=== PATIENT | female | born 1970 | race Caucasian/White ===

== ENCOUNTER → 2017-01-29 | Day surgery (SDC) | payer MEDICAID ==
[~2017-01-29] VITALS: Ht 152.4 cm; Wt 82.6 kg
[~2017-01-29] MED LIST: CEFAZOLIN SODIUM 1000MG/VIAL ONE; CYAN100086 PO; FENTANYL CITRATE/PF 50MCG/ML 2ML VIAL ONE; FERRIC SUBSULFATE SOLN 8GM TOP SCH; FISH1CAP34 PO; HYDROCODONE/ACETAMINOPHEN 5/325MG TABLET PO PRN; IODINE TOP SCH; LACTATED RINGERS 1,000 ML IV SCH; LIDOCAINE HCL 1% 20ML VIAL (Pyxis) INJ ONE; MEPERIDINE HCL/PF 25MG/ML CPJ IV PRN; MIDAZOLAM HCL 2 MG/2 ML VIAL ONE; MULT-1146 PO; ONDANSETRON HCL 4MG/2ML VIAL IV PRN; ONDANSETRON HCL 4MG/2ML VIAL ONE; POTASSIUM IODIDE TOP SCH; PROPOFOL 200MG/20ML VIAL IV ONE; SODIUM CHLORIDE 0.9% 1,000 ML IV SCH; VITA400T7 PO
[2017-01-29 06:36] LABS: BASOPHILS % 1.4 % (0.0-2.0); DIFFERENTIAL COMMENT 0; EOSINOPHILS % 5.2 % (0.0-5.0); HEMATOCRIT. 39.3 % (36.0-48.0); LYMPHOCYTES % 26.9 % (20.0-50.0); MEAN CORPUSCULAR HEMOGLOBIN 26.5 pg (28.0-32.0); MEAN CORPUSCULAR HGB CONC 33.2 g/dL (31.0-37.0); MEAN CORPUSCULAR VOLUME 79.8 fL (81.0-99.0); MONOCYTES % 10.5 % (2.0-8.0); PLATELET 347 x1000/uL (130-400); RED BLOOD CELL COUNT 4.92 mill/uL (4.2-5.4); RED CELL DISTRIBUTION WIDTH 14.5 % (11.6-14.6); WHITE BLOOD COUNT 5.8 x1000/uL (4.5-11.0)
[2017-01-29 06:44] LABS: PARTIAL THROMBOPLASTIN TIME 27.5 sec (24.0-34.0); PROTHROMBIN TIME 9.9 sec
[2017-01-29 06:47] LABS: ANION GAP 12; CALCIUM 8.3 mg/dL (8.5-10.1); CARBON DIOXIDE 26 mEq/L (21-32); CHLORIDE 105 mEq/L (98-107); INDEX HEMOLYSI 1 (1-3); INDEX ICTERIC 1 (1-4); INDEX LIPEMIC 1 (1-3); UREA NITROGEN BLOOD 7 mg/dL (7-21); eGFR > 60 mL/min (>60)
[2017-01-29 07:19] LABS: CLARITY URINE CLEAR (CLEAR); COLOR URINE YELLOW (YELLOW); GLUCOSE URINE NEGATIVE (NEGATIVE); KETONES URINE NEGATIVE (NEGATIVE); LEUKOCYTE ESTERASE URINE NEGATIVE (NEGATIVE); NITRITE URINE NEGATIVE (NEGATIVE); OCCULT BLOOD URINE NEGATIVE (NEGATIVE); PROTEIN URINE NEGATIVE (NEGATIVE); SPECIFIC GRAVITY URINE 1.019 (1.005-1.030); UROBILINOGEN URINE 0.2 E.U./dL (0.2-1.0)
[2017-01-29 07:20] LABS: UCG SCREEN NEGATIVE
[2017-01-29] MEDS: HYDROMORPHONE HCL/PF 2MG/ML CPJ IV PRN ×2 (09:46→09:57)
[2017-01-29 09:57] VITALS: BP 135/77
== END | disposition home or self-care (01) ==
LOC: OR 05:31
PROVIDERS: ATTEND Obstetrics & Gynecology
DX: D06.0 Carcinoma in situ of endocervix (principal); E66.01 Morbid (severe) obesity due to excess calories; N81.6 Rectocele; N81.10 Cystocele, unspecified; D25.9 Leiomyoma of uterus, unspecified
CPT/HCPCS: 36415; 57520; 80048; 81003; 81025; 85025; 85610; 85730; 88305; 88307; 93005; J0690; J1170; J2250; J2405; J3010; J3490; J7120; J2704

== ENCOUNTER 2017-03-19 05:23 | Inpatient (IN) | payer MEDICAID ==
[~2017-03-19] VITALS: Ht 152.4 cm; Wt 82.6 kg
[~2017-03-19 05:23] MED LIST changes: -CEFAZOLIN SODIUM 1000MG/VIAL ONE; -FENTANYL CITRATE/PF 50MCG/ML 2ML VIAL ONE; -FERRIC SUBSULFATE SOLN 8GM TOP SCH; -HYDROCODONE/ACETAMINOPHEN 5/325MG TABLET PO PRN; -IODINE TOP SCH; -LACTATED RINGERS 1,000 ML IV SCH; -LIDOCAINE HCL 1% 20ML VIAL (Pyxis) INJ ONE; -MEPERIDINE HCL/PF 25MG/ML CPJ IV PRN; -MIDAZOLAM HCL 2 MG/2 ML VIAL ONE; -ONDANSETRON HCL 4MG/2ML VIAL IV PRN; -ONDANSETRON HCL 4MG/2ML VIAL ONE; -POTASSIUM IODIDE TOP SCH; -PROPOFOL 200MG/20ML VIAL IV ONE; -SODIUM CHLORIDE 0.9% 1,000 ML IV SCH
[2017-03-19 06:28] LABS: UCG SCREEN NEGATIVE
[2017-03-19] MEDS ORDERED: LACTATED RINGERS 1,000 ML IV SCH (06:40)
[2017-03-19] MEDS ORDERED: ROCURONIUM BROMIDE 10MG/ML VIAL 5ML IV ONE (08:18)
[2017-03-19] MEDS ORDERED: DEXAMETHASONE 4MG/ML 1ML VIAL ONE (08:18)
[2017-03-19] MEDS ORDERED: ONDANSETRON HCL 4MG/2ML VIAL ONE (08:18)
[2017-03-19] MEDS ORDERED: CEFAZOLIN SODIUM 1000MG/VIAL ONE (08:27)
[2017-03-19] MEDS ORDERED: ONDANSETRON HCL 4MG/2ML VIAL IV PRN ×2 (08:30→10:30)
[2017-03-19] MEDS ORDERED: LABETALOL HCL 5MG/ML VIAL 20ML IV ONE (08:45)
[2017-03-19] MEDS ORDERED: LABETALOL HCL 20MG/4ML CARPUJECT IV PRN (09:00)
[2017-03-19] MEDS ORDERED: HYDROMORPHONE HCL/PF 2MG/ML CPJ IV PRN (09:00)
[2017-03-19] MEDS ORDERED: ATROPINE SULFATE 0.4MG/ML VIAL ONE (09:17)
[2017-03-19] MEDS ORDERED: THROMBIN (BOVINE) 5000 UNITS/VIAL TOP ONE (09:40)
[2017-03-19] MEDS ORDERED: GELATIN SPONGE,ABSORBABLE SZ 100 ONE (09:40)
[2017-03-19] MEDS ORDERED: PROPOFOL 200MG/20ML VIAL IV ONE (10:07)
[2017-03-19] MEDS: MEPERIDINE HCL/PF 25MG/ML CPJ IV PRN ×2 (10:59→11:26)
[2017-03-19 12:30] VITALS: BP 127/80
[2017-03-19] MEDS: MORPHINE SULFATE 2 MG/ML CPJ (NOT FOR IM USE) IV PRN ×2 (12:40→17:11)
[2017-03-19 13:00] VITALS: BP 127/80
[2017-03-19 13:23] LABS: HEMATOCRIT. 37.2 % (36.0-48.0); HEMOGLOBIN. 12.1 g/dL (12.0-16.0); MEAN CORPUSCULAR HEMOGLOBIN 25.7 pg (28.0-32.0); MEAN CORPUSCULAR HGB CONC 32.6 g/dL (31.0-37.0); MEAN CORPUSCULAR VOLUME 78.7 fL (81.0-99.0); MEAN PLATELET VOLUME 7.9 fl (7.4-10.4); PLATELET 342 x1000/uL (130-400); RED BLOOD CELL COUNT 4.72 mill/uL (4.2-5.4); RED CELL DISTRIBUTION WIDTH 14.1 % (11.6-14.6); WHITE BLOOD COUNT 17.2 x1000/uL (4.5-11.0)
[2017-03-19 13:28] LABS: DIFFERENTIAL COMMENT 1
[2017-03-19] MEDS ORDERED: CEFAZOLIN 1000MG PREMIX 50 ML IV SCH (14:00)
[2017-03-19] MEDS: CEFAZOLIN 1000MG PREMIX 50 ML IV SCH ×2 (14:33→21:45)
[2017-03-19] MEDS: DEXT 5%/0.45% NACL KCL 20MEQ/L 1,000 ML IV SCH (14:33)
[2017-03-19] MEDS ORDERED: KETOROLAC 30MG/ML VIAL IV NR (15:00)
[2017-03-19 16:00] VITALS: BP 103/68
[2017-03-19 20:00] VITALS: BP 138/81
[2017-03-19] MEDS: FAMOTIDINE 20MG/2ML VIAL IV SCH (20:14)
[2017-03-19 20:24] LABS: PLATELET ESTIMATE NORMAL
[2017-03-19] MEDS: KETOROLAC 30MG/ML VIAL IV PRN (23:23)
[2017-03-20] VITALS: BP 101/66
[2017-03-20] MEDS: DEXT 5%/0.45% NACL KCL 20MEQ/L 1,000 ML IV SCH (00:33)
[2017-03-20 04:00] VITALS: BP 106/75
[2017-03-20] MEDS: CEFAZOLIN 1000MG PREMIX 50 ML IV SCH ×3 (05:25→21:52)
[2017-03-20 08:00] VITALS: BP 119/72
[2017-03-20] MEDS: FAMOTIDINE 20MG/2ML VIAL IV SCH ×2 (09:00→21:51)
[2017-03-20 10:25] LABS: HEMATOCRIT 35.6 % (36.0-48.0); HEMOGLOBIN 11.5 g/dL (12.0-16.0); MEAN CORPUSCULAR HEMOGLOBIN 25.3 pg (28.0-32.0); MEAN CORPUSCULAR HGB CONC 32.2 g/dL (31.0-37.0); MEAN CORPUSCULAR VOLUME 78.6 fL (81.0-99.0); PLATELET 326 x1000/uL (130-400); RED BLOOD CELL COUNT 4.53 mill/uL (4.2-5.4); RED CELL DISTRIBUTION WIDTH 14.2 % (11.6-14.6); WHITE BLOOD COUNT 15.3 x1000/uL (4.5-11.0)
[2017-03-20 11:10] LABS: ANION GAP 11; CALCIUM 8.1 mg/dL (8.5-10.1); CARBON DIOXIDE 26 mEq/L (21-32); CHLORIDE 108 mEq/L (98-107); INDEX HEMOLYSI 1 (1-3); INDEX ICTERIC 1 (1-4); INDEX LIPEMIC 1 (1-3); UREA NITROGEN BLOOD 7 mg/dL (7-21); eGFR > 60 mL/min (>60)
[2017-03-20] MEDS: KETOROLAC 30MG/ML VIAL IV PRN (11:38)
[2017-03-20 12:00] VITALS: BP 106/68
[2017-03-20] MEDS: IBUPROFEN 600MG TABLET PO PRN ×2 (13:16→22:05)
[2017-03-20] MEDS ORDERED: ENOXAPARIN 30MG/0.3ML SYR SUBCUT SCH (14:00)
[2017-03-20] MEDS ORDERED: ENOXAPARIN 40MG/0.4ML SYR SUBCUT SCH (15:35)
[2017-03-20 16:00] VITALS: BP 106/62
[2017-03-20] MEDS: HYDROCODONE/ACETAMINOPHEN 5/325MG TABLET PO PRN ×2 (16:00→19:58)
[2017-03-20] MEDS: ENOXAPARIN 40MG/0.4ML SYR SUBCUT SCH (18:05)
[2017-03-20 20:00] VITALS: BP 106/74
[2017-03-21] VITALS: BP 102/68
[2017-03-21 04:00] VITALS: BP 102/62
[2017-03-21] MEDS: CEFAZOLIN 1000MG PREMIX 50 ML IV SCH ×3 (05:54→21:54)
[2017-03-21] MEDS: HYDROCODONE/ACETAMINOPHEN 5/325MG TABLET PO PRN ×4 (05:55→21:46)
[2017-03-21 08:00] VITALS: BP 110/58
[2017-03-21] MEDS: FAMOTIDINE 20MG/2ML VIAL IV SCH ×2 (08:43→21:46)
[2017-03-21 12:00] VITALS: BP 114/72
[2017-03-21 16:00] VITALS: BP 102/64
[2017-03-21] MEDS: ENOXAPARIN 40MG/0.4ML SYR SUBCUT SCH (16:29)
[2017-03-21 20:00] VITALS: BP 108/67
[2017-03-22] VITALS: BP 107/57
[2017-03-22 04:00] VITALS: BP 110/60
[2017-03-22] MEDS: CEFAZOLIN 1000MG PREMIX 50 ML IV SCH (06:38)
[2017-03-22 08:00] VITALS: BP 111/72
[2017-03-22] MEDS: FAMOTIDINE 20MG/2ML VIAL IV SCH (08:50)
[2017-03-22] MEDS ORDERED: BISACODYL 10MG SUPP PR PRN (09:00)
[2017-03-22 12:00] VITALS: BP 110/66
[2017-03-22 13:35] VITALS: BP 120/70
== END 2017-03-22 14:10 | disposition home or self-care (01) | DRG 513 ==
LOC: OR 05:23 → 6EST 05:24
PROVIDERS: ADMIT Obstetrics & Gynecology; ATTEND Obstetrics & Gynecology
PROC: 0UT90ZZ Resection of Uterus, Open Approach (ICD-10-PCS; principal; 2017-03-20)
PROC: 0UTC0ZZ Resection of Cervix, Open Approach (ICD-10-PCS; 2017-03-20)
PROC: 0UT20ZZ Resection of Bilateral Ovaries, Open Approach (ICD-10-PCS; 2017-03-20)
PROC: 0UT70ZZ Resection of Bilateral Fallopian Tubes, Open Approach (ICD-10-PCS; 2017-03-20)
DX: D06.9 Carcinoma in situ of cervix, unspecified (principal); R65.10 Systemic inflammatory response syndrome (SIRS) of non-infectious origin without acute organ dysfunction; D25.9 Leiomyoma of uterus, unspecified; Z98.51 Tubal ligation status
CPT/HCPCS: 36415; 80048; 81025; 85025; 85027; 88307; J0461; J0690; J1100; J1650; J1885; J2175; J2270; J2405; J2704; J3490; J7050; J7120